=== PATIENT | female | born 1960 | race Caucasian/White ===

== ENCOUNTER 2022-10-27 09:56 | Outpatient (CLI) | payer OTHER, SELFPAY | END 2022-10-27 09:57 | disposition home or self-care (01) | LOC: WOUND 10:03 | PROVIDERS: PCP Family Medicine; Visit Provider Surgery | DX: I89.0 Lymphedema, not elsewhere classified (principal); L97.319 Non-pressure chronic ulcer of right ankle with unspecified severity; I50.20 Unspecified systolic (congestive) heart failure | CPT/HCPCS: 97597; 99205 ==

== ENCOUNTER 2022-11-03 10:53 | Outpatient (CLI) | payer OTHER, SELFPAY | END 2022-11-03 10:54 | disposition home or self-care (01) | LOC: WOUND 10:54 | PROVIDERS: PCP Family Medicine; Visit Provider Surgery | DX: I89.0 Lymphedema, not elsewhere classified (principal); L97.319 Non-pressure chronic ulcer of right ankle with unspecified severity; L97.819 Non-pressure chronic ulcer of other part of right lower leg with unspecified severity | CPT/HCPCS: 97597 ==

== ENCOUNTER 2022-11-10 09:57 | Outpatient (CLI) | payer OTHER, SELFPAY | END 2022-11-10 09:58 | disposition home or self-care (01) | LOC: WOUND 09:57 | PROVIDERS: PCP Family Medicine; Visit Provider Surgery | DX: I89.0 Lymphedema, not elsewhere classified (principal); I87.2 Venous insufficiency (chronic) (peripheral); L97.319 Non-pressure chronic ulcer of right ankle with unspecified severity | CPT/HCPCS: 97597; 99212 ==

== ENCOUNTER 2022-11-17 09:57 | Outpatient (CLI) | payer OTHER, SELFPAY | END 2022-11-17 09:58 | disposition home or self-care (01) | LOC: WOUND 09:57 | PROVIDERS: PCP Family Medicine; Visit Provider Surgery | DX: I89.0 Lymphedema, not elsewhere classified (principal); I87.2 Venous insufficiency (chronic) (peripheral); L97.318 Non-pressure chronic ulcer of right ankle with other specified severity | CPT/HCPCS: 97597 ==

== ENCOUNTER 2022-11-17 11:12 | Outpatient (CLI) | payer OTHER, SELFPAY ==
--- NOTE | 2022-11-17 11:15 | CRLHL7_ITS ---
For Patients: As a result of the Cures Act, medical imaging exams and procedure reports are released immediately into your electronic medical record. You may view this report before your referring provider. If you have questions, please contact your health care provider. Indication: Infection Technique: Right ankle 2 views Comparison: None Findings: Postop changes of ankle fusion noted with intact hardware. No periostitis or cortical destruction. No fracture. Soft tissue swelling. Impression: No evidence of osteomyelitis. Dictated by Siddhartha Osborn MD @ 11/17/2022 11:50:08 AM (Electronically Signed)
== END 2022-11-17 11:13 | disposition home or self-care (01) ==
LOC: RAD 11:12
PROVIDERS: PCP Family Medicine; Visit Provider Surgery
DX: L97.809 Non-pressure chronic ulcer of other part of unspecified lower leg with unspecified severity (principal); I87.2 Venous insufficiency (chronic) (peripheral)
CPT/HCPCS: 73600

== ENCOUNTER 2022-11-24 10:06 | Outpatient (CLI) | payer OTHER, SELFPAY | END 2022-11-24 10:07 | disposition home or self-care (01) | LOC: WOUND 10:06 | PROVIDERS: PCP Family Medicine; Visit Provider Surgery | DX: I89.0 Lymphedema, not elsewhere classified (principal); L97.312 Non-pressure chronic ulcer of right ankle with fat layer exposed; I87.2 Venous insufficiency (chronic) (peripheral) | CPT/HCPCS: 99213 ==

== ENCOUNTER 2022-11-26 14:48 | Outpatient (CLI) | payer OTHER, SELFPAY | END 2022-11-26 14:49 | disposition home or self-care (01) | PROVIDERS: PCP Family Medicine; Visit Provider Surgery | DX: I89.0 Lymphedema, not elsewhere classified (principal); L97.312 Non-pressure chronic ulcer of right ankle with fat layer exposed | CPT/HCPCS: 99212 ==

== ENCOUNTER 2022-11-29 15:26 | Outpatient (CLI) | payer OTHER, SELFPAY | END 2022-11-29 15:27 | disposition home or self-care (01) | LOC: WOUND 15:26 | PROVIDERS: PCP Family Medicine; Visit Provider Surgery | DX: I89.0 Lymphedema, not elsewhere classified (principal); I87.2 Venous insufficiency (chronic) (peripheral); L97.312 Non-pressure chronic ulcer of right ankle with fat layer exposed | CPT/HCPCS: 99212 ==

== ENCOUNTER 2022-12-01 10:28 | Outpatient (CLI) | payer OTHER, SELFPAY | END 2022-12-01 10:29 | disposition home or self-care (01) | LOC: WOUND 10:28 | PROVIDERS: PCP Family Medicine; Visit Provider Surgery | DX: I89.0 Lymphedema, not elsewhere classified (principal); I87.2 Venous insufficiency (chronic) (peripheral); L97.318 Non-pressure chronic ulcer of right ankle with other specified severity | CPT/HCPCS: 97597 ==

== ENCOUNTER 2022-12-08 09:56 | Outpatient (CLI) | payer OTHER, SELFPAY | END 2022-12-08 09:57 | disposition home or self-care (01) | LOC: WOUND 09:56 | PROVIDERS: PCP Family Medicine; Visit Provider Surgery | DX: I87.2 Venous insufficiency (chronic) (peripheral) (principal); L97.312 Non-pressure chronic ulcer of right ankle with fat layer exposed; I89.0 Lymphedema, not elsewhere classified | CPT/HCPCS: 97597 ==

== ENCOUNTER 2022-12-15 08:53 | Outpatient (CLI) | payer OTHER, SELFPAY | END 2022-12-15 08:54 | disposition home or self-care (01) | LOC: WOUND 08:54 | PROVIDERS: PCP Family Medicine; Visit Provider Surgery | DX: I87.2 Venous insufficiency (chronic) (peripheral) (principal); L97.318 Non-pressure chronic ulcer of right ankle with other specified severity; I89.0 Lymphedema, not elsewhere classified | CPT/HCPCS: 15271; Q4121 ==

== ENCOUNTER 2022-12-22 10:11 | Outpatient (CLI) | payer OTHER, SELFPAY | END 2022-12-22 10:12 | disposition home or self-care (01) | LOC: WOUND 10:11 | PROVIDERS: PCP Family Medicine; Visit Provider Surgery | DX: I87.2 Venous insufficiency (chronic) (peripheral) (principal); I89.0 Lymphedema, not elsewhere classified; L97.318 Non-pressure chronic ulcer of right ankle with other specified severity | CPT/HCPCS: 99213 ==

== ENCOUNTER 2022-12-29 10:20 | Outpatient (CLI) | payer OTHER, SELFPAY | END 2022-12-29 10:21 | disposition home or self-care (01) | LOC: WOUND 10:20 | PROVIDERS: PCP Family Medicine; Visit Provider Family Medicine | DX: I87.311 Chronic venous hypertension (idiopathic) with ulcer of right lower extremity (principal); L97.318 Non-pressure chronic ulcer of right ankle with other specified severity | CPT/HCPCS: 15271; Q4121 ==

== ENCOUNTER 2023-01-12 10:27 | Outpatient (CLI) | payer OTHER, SELFPAY | END 2023-01-12 10:28 | disposition home or self-care (01) | PROVIDERS: PCP Family Medicine; Visit Provider Surgery | DX: I89.0 Lymphedema, not elsewhere classified (principal); I87.2 Venous insufficiency (chronic) (peripheral); L97.818 Non-pressure chronic ulcer of other part of right lower leg with other specified severity; S81.801A Unspecified open wound, right lower leg, initial encounter | CPT/HCPCS: 99214 ==

== ENCOUNTER 2023-01-19 10:15 | Outpatient (CLI) | payer OTHER, SELFPAY ==
--- NOTE | 2023-01-19 15:00 | CRLHL7_ITS ---
For Patients: As a result of the Cures Act, medical imaging exams and procedure reports are released immediately into your electronic medical record. You may view this report before your referring provider. If you have questions, please contact your health care provider. INDICATION: bilateral edema, non-healing wounds. COMPARISON: None available TECHNIQUE: A duplex venous ultrasound exam was performed of both lower extremities using machado scale imaging, color Doppler and spectral Doppler analysis. Pre- and post compression images were obtained per site specific protocol. The size of the superficial veins were recorded, along with reflux times if applicable. FINDINGS: In the right lower extremity deep venous system, there is normal compressibility, color Doppler venous blood flow and augmentation within the common femoral vein, superficial femoral vein, popliteal vein, and posterior tibial veins. The greater and lesser saphenous veins of the right lower extremity are also patent and compressible with intact color Doppler venous blood flow. The greater saphenous vein measures 1.0 cm at the saphenofemoral junction where it is competent. The greater saphenous vein is competent throughout the thigh and calf. The lesser saphenous vein is competent throughout. In the left lower extremity deep venous system, there is normal compressibility, color Doppler venous blood flow and augmentation within the common femoral vein, superficial femoral vein, popliteal vein, and posterior tibial veins. The greater and lesser saphenous veins of the left lower extremity are also patent and compressible with intact color Doppler venous blood flow. The greater saphenous vein measures 1.6 cm at the saphenofemoral junction where it is competent. The greater saphenous vein is competent throughout the thigh and calf. The lesser saphenous vein is competent throughout. IMPRESSION: 1. No deep or superficial venous thrombosis. 2. No venous insufficiency in bilateral lower extremities. Dictated by Siddhartha Osborn MD @ 01/20/2023 8:21:22 AM (Electronically Signed)
== END 2023-01-19 10:16 | disposition home or self-care (01) ==
PROVIDERS: PCP Family Medicine; Visit Provider Surgery
DX: I89.0 Lymphedema, not elsewhere classified (principal); I87.2 Venous insufficiency (chronic) (peripheral); L97.312 Non-pressure chronic ulcer of right ankle with fat layer exposed
CPT/HCPCS: 93970; 97597

== ENCOUNTER 2023-01-26 10:26 | Outpatient (CLI) | payer OTHER, SELFPAY | END 2023-01-26 10:27 | disposition home or self-care (01) | LOC: WOUND 10:26 | PROVIDERS: PCP Family Medicine; Visit Provider Surgery | DX: I87.2 Venous insufficiency (chronic) (peripheral) (principal); I89.0 Lymphedema, not elsewhere classified; L97.312 Non-pressure chronic ulcer of right ankle with fat layer exposed | CPT/HCPCS: 15271; Q4121 ==

== ENCOUNTER 2023-02-02 10:26 | Outpatient (CLI) | payer OTHER, SELFPAY | END 2023-02-02 10:27 | disposition home or self-care (01) | LOC: WOUND 10:26 | PROVIDERS: PCP Family Medicine; Visit Provider Surgery | DX: I89.0 Lymphedema, not elsewhere classified (principal); L97.312 Non-pressure chronic ulcer of right ankle with fat layer exposed; E66.01 Morbid (severe) obesity due to excess calories; Z68.43 Body mass index [BMI] 50.0-59.9, adult | CPT/HCPCS: 87070; 87186; 97597; 99212 ==

== ENCOUNTER 2023-02-09 09:55 | Outpatient (CLI) | payer OTHER, SELFPAY | END 2023-02-09 09:56 | disposition home or self-care (01) | LOC: WOUND 09:55 | PROVIDERS: PCP Family Medicine; Visit Provider Surgery | DX: I87.2 Venous insufficiency (chronic) (peripheral) (principal); I89.0 Lymphedema, not elsewhere classified; L97.312 Non-pressure chronic ulcer of right ankle with fat layer exposed | CPT/HCPCS: 97597 ==

== ENCOUNTER 2023-02-16 11:04 | Outpatient (CLI) | payer OTHER, SELFPAY | END 2023-02-16 11:05 | disposition home or self-care (01) | LOC: WOUND 11:05 | PROVIDERS: PCP Family Medicine; Visit Provider Surgery | DX: I87.2 Venous insufficiency (chronic) (peripheral) (principal); I89.0 Lymphedema, not elsewhere classified; L97.312 Non-pressure chronic ulcer of right ankle with fat layer exposed | CPT/HCPCS: 11042 ==

== ENCOUNTER 2023-02-23 09:54 | Outpatient (CLI) | payer OTHER, SELFPAY | END 2023-02-23 09:55 | disposition home or self-care (01) | LOC: WOUND 09:54 | PROVIDERS: PCP Family Medicine; Visit Provider Physician Assistant | DX: I87.2 Venous insufficiency (chronic) (peripheral) (principal); I89.0 Lymphedema, not elsewhere classified; L97.312 Non-pressure chronic ulcer of right ankle with fat layer exposed | CPT/HCPCS: 15271; Q4121 ==

== ENCOUNTER 2023-03-02 09:53 | Outpatient (CLI) | payer OTHER, SELFPAY | END 2023-03-02 09:54 | disposition home or self-care (01) | LOC: WOUND 09:53 | PROVIDERS: PCP Family Medicine; Visit Provider Family Medicine | DX: I87.311 Chronic venous hypertension (idiopathic) with ulcer of right lower extremity (principal); L97.312 Non-pressure chronic ulcer of right ankle with fat layer exposed; I89.0 Lymphedema, not elsewhere classified; I87.2 Venous insufficiency (chronic) (peripheral) | CPT/HCPCS: 15271; Q4121 ==

== ENCOUNTER 2023-03-09 10:31 | Outpatient (CLI) | payer OTHER, SELFPAY | END 2023-03-09 10:32 | disposition home or self-care (01) | LOC: WOUND 10:31 | PROVIDERS: PCP Family Medicine; Visit Provider Physician Assistant Surgical | DX: I87.2 Venous insufficiency (chronic) (peripheral) (principal); I89.0 Lymphedema, not elsewhere classified; L97.312 Non-pressure chronic ulcer of right ankle with fat layer exposed | CPT/HCPCS: 11042 ==

== ENCOUNTER 2023-03-09 12:30 | Outpatient (RCR) | payer OTHER, SELFPAY | END 2023-07-07 23:59 | disposition home or self-care (01) | PROVIDERS: PCP Family Medicine; Visit Provider Surgery | DX: I89.0 Lymphedema, not elsewhere classified (principal); Z51.89 Encounter for other specified aftercare | CPT/HCPCS: 97140; 97165; 97535 ==

== ENCOUNTER 2023-03-16 10:31 | Outpatient (CLI) | payer MEDICARE, SELFPAY | END 2023-03-16 10:32 | disposition home or self-care (01) | PROVIDERS: PCP Family Medicine; Visit Provider Family Medicine | DX: T84.7XXA Infection and inflammatory reaction due to other internal orthopedic prosthetic devices, implants and grafts, initial encounter (principal); L97.312 Non-pressure chronic ulcer of right ankle with fat layer exposed; I89.0 Lymphedema, not elsewhere classified | CPT/HCPCS: 11042 ==

== ENCOUNTER 2023-03-23 08:47 | Outpatient (CLI) | payer OTHER, SELFPAY ==
--- NOTE | 2023-03-23 09:00 | CRLHL7_ITS ---
For Patients: As a result of the Cures Act, medical imaging exams and procedure reports are released immediately into your electronic medical record. You may view this report before your referring provider. If you have questions, please contact your health care provider. HISTORY: Fusion. Wound. Retained hardware. TECHNIQUE: Noncontrast CT of the right ankle. COMPARISON: Radiographs from 11/17/2022. FINDINGS: Patient is status post prior fusion of the tibiotalar joint space and syndesmosis. There is mature broad fusion across the tibiotalar joint space. There is also fusion between the distal tibia and fibula and between the fibula and lateral talus. The placed hardware appears intact. No evidence of hardware loosening. 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 Degenerative changes of navicular cuneiform articulations. Soft tissue swelling. No definite fluid collection. No acute bone destruction specific for osteomyelitis. IMPRESSION: 1. Mature fusion across the tibiotalar joint space, between the distal tibia and fibula and between the distal fibula and lateral talus. 2. 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 3. 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 4. Soft tissue swelling. 5. No acute bone destruction specific for osteomyelitis. Please note that all CT scans at this facility use dose modulation, iterative reconstruction, and/or weight-based dosing when appropriate to reduce radiation dose to as low as reasonably achievable. Dictated by Jean Paul Sarabia MD @ 03/24/2023 1:11:07 PM (Electronically Signed)
== END 2023-03-23 08:48 | disposition home or self-care (01) ==
PROVIDERS: PCP Family Medicine; Visit Provider Physician Assistant Surgical
DX: I87.2 Venous insufficiency (chronic) (peripheral) (principal); L97.312 Non-pressure chronic ulcer of right ankle with fat layer exposed; I89.0 Lymphedema, not elsewhere classified; Z96.7 Presence of other bone and tendon implants
CPT/HCPCS: 73700; 97597

== ENCOUNTER 2023-03-24 10:53 | Outpatient (CLI) | payer OTHER, SELFPAY | END 2023-03-24 10:54 | disposition home or self-care (01) | PROVIDERS: PCP Family Medicine; Visit Provider Orthopaedic Surgery | DX: B99.9 Unspecified infectious disease (principal) | CPT/HCPCS: 86140 ==

== ENCOUNTER 2023-03-30 10:32 | Outpatient (CLI) | payer OTHER, SELFPAY | END 2023-03-30 10:33 | disposition home or self-care (01) | LOC: WOUND 10:32 | PROVIDERS: PCP Family Medicine; Visit Provider Physician Assistant | DX: I87.2 Venous insufficiency (chronic) (peripheral) (principal); I89.0 Lymphedema, not elsewhere classified; L97.312 Non-pressure chronic ulcer of right ankle with fat layer exposed | CPT/HCPCS: 97597 ==

== ENCOUNTER 2023-04-13 10:18 | Outpatient (CLI) | payer OTHER, SELFPAY | END 2023-04-13 10:19 | disposition home or self-care (01) | LOC: WOUND 10:18 | PROVIDERS: PCP Family Medicine; Visit Provider Family Medicine | DX: I87.2 Venous insufficiency (chronic) (peripheral) (principal); L97.312 Non-pressure chronic ulcer of right ankle with fat layer exposed; T84.7XXA Infection and inflammatory reaction due to other internal orthopedic prosthetic devices, implants and grafts, initial encounter; I89.0 Lymphedema, not elsewhere classified | CPT/HCPCS: 11042; G0463 ==

== ENCOUNTER 2023-05-18 10:34 | Outpatient (CLI) | payer OTHER, SELFPAY | END 2023-05-18 10:35 | disposition home or self-care (01) | LOC: WOUND 10:34 | PROVIDERS: PCP Family Medicine; Visit Provider Family Medicine | DX: I87.2 Venous insufficiency (chronic) (peripheral) (principal); I89.0 Lymphedema, not elsewhere classified; L97.312 Non-pressure chronic ulcer of right ankle with fat layer exposed; T84.7XXA Infection and inflammatory reaction due to other internal orthopedic prosthetic devices, implants and grafts, initial encounter | CPT/HCPCS: 97597 ==

== ENCOUNTER 2023-05-25 10:28 | Outpatient (CLI) | payer OTHER, SELFPAY | END 2023-05-25 10:29 | disposition home or self-care (01) | LOC: WOUND 10:28 | PROVIDERS: PCP Family Medicine; Visit Provider Family Medicine | DX: I87.311 Chronic venous hypertension (idiopathic) with ulcer of right lower extremity (principal); I87.2 Venous insufficiency (chronic) (peripheral); L97.312 Non-pressure chronic ulcer of right ankle with fat layer exposed | CPT/HCPCS: 11042 ==

== ENCOUNTER 2023-06-01 10:33 | Outpatient (CLI) | payer OTHER, SELFPAY | END 2023-06-01 10:34 | disposition home or self-care (01) | LOC: WOUND 10:33 | PROVIDERS: PCP Family Medicine; Visit Provider Surgery | DX: I87.311 Chronic venous hypertension (idiopathic) with ulcer of right lower extremity (principal); I87.2 Venous insufficiency (chronic) (peripheral); L97.312 Non-pressure chronic ulcer of right ankle with fat layer exposed | CPT/HCPCS: 97597 ==

== ENCOUNTER 2023-06-08 10:34 | Outpatient (CLI) | payer OTHER, SELFPAY | END 2023-06-08 10:35 | disposition home or self-care (01) | LOC: WOUND 10:35 | PROVIDERS: PCP Family Medicine; Visit Provider Surgery | DX: I87.311 Chronic venous hypertension (idiopathic) with ulcer of right lower extremity (principal); I87.2 Venous insufficiency (chronic) (peripheral); L97.312 Non-pressure chronic ulcer of right ankle with fat layer exposed | CPT/HCPCS: 97597 ==

== ENCOUNTER 2023-06-15 11:21 | Outpatient (CLI) | payer OTHER, SELFPAY | END 2023-06-15 11:22 | disposition home or self-care (01) | LOC: WOUND 11:21 | PROVIDERS: PCP Family Medicine; Visit Provider Surgery | DX: I87.311 Chronic venous hypertension (idiopathic) with ulcer of right lower extremity (principal); I87.2 Venous insufficiency (chronic) (peripheral); L97.312 Non-pressure chronic ulcer of right ankle with fat layer exposed | CPT/HCPCS: 15271; Q4151 ==

== ENCOUNTER 2023-06-22 11:16 | Outpatient (CLI) | payer OTHER, SELFPAY | END 2023-06-22 11:17 | disposition home or self-care (01) | LOC: WOUND 11:16 | PROVIDERS: PCP Family Medicine; Visit Provider Surgery | DX: I87.311 Chronic venous hypertension (idiopathic) with ulcer of right lower extremity (principal); I87.2 Venous insufficiency (chronic) (peripheral); L97.312 Non-pressure chronic ulcer of right ankle with fat layer exposed; I89.0 Lymphedema, not elsewhere classified | CPT/HCPCS: 15271; Q4151 ==

== ENCOUNTER 2023-06-29 11:14 | Outpatient (CLI) | payer OTHER, SELFPAY | END 2023-06-29 11:15 | disposition home or self-care (01) | PROVIDERS: PCP Family Medicine; Visit Provider Surgery | DX: I87.311 Chronic venous hypertension (idiopathic) with ulcer of right lower extremity (principal); I87.2 Venous insufficiency (chronic) (peripheral); L97.312 Non-pressure chronic ulcer of right ankle with fat layer exposed; I89.0 Lymphedema, not elsewhere classified | CPT/HCPCS: 15271; Q4151 ==

== ENCOUNTER 2023-07-06 11:07 | Outpatient (CLI) | payer OTHER, SELFPAY | END 2023-07-06 11:08 | disposition home or self-care (01) | LOC: WOUND 11:07 | PROVIDERS: PCP Family Medicine; Visit Provider Family Medicine | DX: I87.311 Chronic venous hypertension (idiopathic) with ulcer of right lower extremity (principal); I87.2 Venous insufficiency (chronic) (peripheral); L97.312 Non-pressure chronic ulcer of right ankle with fat layer exposed | CPT/HCPCS: 15271; Q4151 ==

== ENCOUNTER 2023-07-13 11:09 | Outpatient (CLI) | payer OTHER, SELFPAY | END 2023-07-13 11:10 | disposition home or self-care (01) | PROVIDERS: PCP Family Medicine; Visit Provider Surgery | DX: I87.311 Chronic venous hypertension (idiopathic) with ulcer of right lower extremity (principal); I87.2 Venous insufficiency (chronic) (peripheral); I89.0 Lymphedema, not elsewhere classified; L97.312 Non-pressure chronic ulcer of right ankle with fat layer exposed | CPT/HCPCS: 15271; Q4151 ==

== ENCOUNTER 2023-07-20 11:13 | Outpatient (CLI) | payer OTHER, SELFPAY | END 2023-07-20 11:14 | disposition home or self-care (01) | LOC: WOUND 11:13 | PROVIDERS: PCP Family Medicine; Visit Provider Surgery | DX: I87.311 Chronic venous hypertension (idiopathic) with ulcer of right lower extremity (principal); I87.2 Venous insufficiency (chronic) (peripheral); L97.312 Non-pressure chronic ulcer of right ankle with fat layer exposed | CPT/HCPCS: 97597 ==

== ENCOUNTER 2023-08-03 11:22 | Outpatient (CLI) | payer OTHER, SELFPAY | END 2023-08-03 11:23 | disposition home or self-care (01) | LOC: WOUND 11:22 | PROVIDERS: PCP Family Medicine; Visit Provider Surgery | DX: I87.311 Chronic venous hypertension (idiopathic) with ulcer of right lower extremity (principal); L97.312 Non-pressure chronic ulcer of right ankle with fat layer exposed; I89.0 Lymphedema, not elsewhere classified | CPT/HCPCS: 15271; Q4151 ==

== ENCOUNTER 2023-08-17 11:14 | Outpatient (CLI) | payer OTHER, SELFPAY | END 2023-08-17 11:15 | disposition home or self-care (01) | PROVIDERS: PCP Family Medicine; Visit Provider Surgery | DX: I87.311 Chronic venous hypertension (idiopathic) with ulcer of right lower extremity (principal); I87.2 Venous insufficiency (chronic) (peripheral); L97.318 Non-pressure chronic ulcer of right ankle with other specified severity | CPT/HCPCS: G0463 ==

== ENCOUNTER 2023-08-31 11:10 | Outpatient (CLI) | payer OTHER, SELFPAY | END 2023-08-31 11:11 | disposition home or self-care (01) | LOC: WOUND 11:16 | PROVIDERS: PCP Family Medicine; Visit Provider Surgery | DX: I87.311 Chronic venous hypertension (idiopathic) with ulcer of right lower extremity (principal); I87.2 Venous insufficiency (chronic) (peripheral); L97.312 Non-pressure chronic ulcer of right ankle with fat layer exposed; L30.4 Erythema intertrigo; B95.2 Enterococcus as the cause of diseases classified elsewhere; I89.0 Lymphedema, not elsewhere classified | CPT/HCPCS: 87070; 87186; G0463 ==

== ENCOUNTER 2023-09-07 11:13 | Outpatient (CLI) | payer OTHER, SELFPAY | END 2023-09-07 11:14 | disposition home or self-care (01) | LOC: WOUND 11:13 | PROVIDERS: PCP Family Medicine; Visit Provider Surgery | DX: I87.311 Chronic venous hypertension (idiopathic) with ulcer of right lower extremity (principal); I87.2 Venous insufficiency (chronic) (peripheral); L97.312 Non-pressure chronic ulcer of right ankle with fat layer exposed | CPT/HCPCS: 97597; G0463 ==

== ENCOUNTER 2023-09-14 11:25 | Outpatient (CLI) | payer OTHER, SELFPAY ==
[2023-09-14 12:26] LABS: Basophils Percent Auto 0.4 % (0.0-3.0); Eosinophils Percent Auto 2.1 % (0.0-7.0); Hematocrit 35.8 % (33.0-51.0); Hemoglobin* 11.9 gm/dL (12.0-16.0); Immature Granulocytes Pct Auto 0.2 %; Lymphocytes Percent Auto 12.2 % (20-44); Mean Corpuscular HGB Conc 33 gm/dL (32-36); Mean Corpuscular Hemoglobin 31 pg (26-34); Mean Corpuscular Volume 93 fL (80-100); Monocytes Percent Auto 15.2 % (0.0-11.0); Neutrophils Percent Auto 69.9 % (42.0-72.0); Platelet Count* 263 K/uL (140-440); RDW Coefficient of Variation % 13.7 % (11.5-15.5); Red Blood Count 3.86 m/uL (4.00-5.20); White Blood Count* 12.33 K/uL (4.50-11.00)
[2023-09-14 12:42] LABS: C Reactive Protein* 5.2 mg/dL (0.5-1.0)
[2023-09-14 12:50] LABS: Slide Review Reflex No
[2023-09-14 13:35] LABS: Erythrocyte SedimentationRate* 34 mm/hr (2-20)
== END 2023-09-14 11:26 | disposition home or self-care (01) ==
LOC: WOUND 11:25
PROVIDERS: PCP Family Medicine; Visit Provider Surgery
DX: I87.311 Chronic venous hypertension (idiopathic) with ulcer of right lower extremity (principal); I87.2 Venous insufficiency (chronic) (peripheral); I89.0 Lymphedema, not elsewhere classified; L97.312 Non-pressure chronic ulcer of right ankle with fat layer exposed; L30.4 Erythema intertrigo
CPT/HCPCS: 36415; 73610; 85025; 85651; 86140; G0463

== ENCOUNTER 2023-09-18 13:37 | Emergency (ER) | payer OTHER, SELFPAY ==
[2023-09-18] VITALS (12 sets, daily range): BP systolic 120–151; BP diastolic 56–100; PULSE 69–77; RESP 24; TEMP 36.3; O2SAT 88–97; BMI 58.2
--- NOTE | 2023-09-18 14:10 | CRLHL7_ITS ---
For Patients: As a result of the Century Cures Act, medical imaging exams and procedure reports are released immediately into your electronic medical record. You may view this report before your referring provider. If you have questions, please contact your health care provider. Indication: : Shortness of breath TECHNIQUE: Single-view chest. FINDINGS: The lungs are clear. The heart, mediastinum and pulmonary vessels are of normal size. There is no evidence of pleural disease. Right pericardial opacity could represent a pericardial cyst or fat pad. IMPRESSION: 1. No acute pulmonary findings. Right pericardial opacity related to a pericardial cyst or fat pad. Dictated by Keeley Durand MD @ 09/18/2023 3:52:25 PM (Electronically Signed)
--- NOTE | 2023-09-18 14:22 | ED.GENADULT ---
HPI - General Adult General Chief complaint: Shortness of Breath/Dyspnea Stated complaint: shortness of breath Time Seen by Provider: 09/18/23 13:47 Source: patient Mode of arrival: EMS Limitations: no limitations History of Present Illness HPI narrative: 63-year-old female coming in today concerned about bilateral feet pain. Patient does have a slowly healing wound of the right ankle but she has been getting [facility], states that Tuesday of this week the so 5 days ago caught on she developed bilateral knee pain. She states that she is in so much pain that she cannot walk. She does live by herself and so what she has been doing this having her son come by twice a day to feed her and help her to the bathroom. Because she only goes to the bathroom 2 times per day she stopped taking her torsemide. She thinks that this is contributing to the fact that her legs are becoming more and more painful, most of the pain again located in the feet. She does complain of feeling short of breath but she states she has been short of breath for about a year in her shortness of breath has not worsened, however she has done almost 0 physical activity for the last 5 days. No fevers. She does complain of having a decreased appetite. No nausea or vomiting. No diarrhea. No urinary symptoms such as increased frequency, urgency or dysuria. Patient is currently on antibiotics. She had an ankle x-ray on September 13 which did not show any evidence of osteomyelitis. Patient is concerned about going home and she is not able to function independently, she is interested in going into a rehab center. Related Data Home Medications ?Medication ?Instructions ?Recorded ?Confirmed gabapentin 300 mg capsule 300 mg PO 3XD 03/23/23 09/18/23 lisinopril 20 1 tab PO DAILY 03/23/23 09/18/23 mg-hydrochlorothiazide 12.5 mg tablet ondansetron 4 mg disintegrating mg PO 03/23/23 03/23/23 tablet propranolol 60 mg tablet 60 mg PO BID 03/23/23 03/23/23 meloxicam 7.5 mg tablet 7.5 mg PO BID 09/18/23 09/18/23 torsemide 20 mg tablet mg PO 09/18/23 tramadol 50 mg tablet 50 mg PO BID PRN 09/18/23 09/18/23 trazodone 50 mg tablet PO 09/18/23 Previous Rx's ?Medication ?Instructions ?Recorded hydrocodone 5 mg-acetaminophen 325 1 tab PO Q6H PRN pain #7 tabs 02/16/23 mg tablet mupirocin 2 % topical ointment 1 applic topical .bid #50 grams 02/16/23 hydrocodone 5 mg-acetaminophen 325 1 tab PO Q6H PRN pain #6 tabs 02/23/23 mg tablet nystatin 100,000 unit/gram topical 1 applic topical QDAY #60 grams 06/29/23 powder amoxicillin 500 mg-potassium 1 tab PO TID 7 days #21 tabs 09/14/23 clavulanate 125 mg tablet (Augmentin) hydrocodone 5 mg-acetaminophen 325 1 tab PO Q8H PRN pain #10 tabs 09/14/23 mg tablet Allergies Allergy/AdvReac Type Severity Reaction Status Date / Time adhesive Allergy Unknown redness on Unverified 04/12/23 09:40 skin Aquacel Ag Foam - Silver Allergy Unknown Uncoded 04/12/23 09:40 foam bandage Duoderm adhesives Allergy Unknown blisters Uncoded 04/12/23 09:40 Review of Systems Status of ROS: Reports: 10 or more systems reviewed and unremarkable except as noted in History and below [facility] Medical History Back problem ?M53.9 - Dorsopathy, unspecified (ICD-10) Sleep apnea ?G47.30 - Sleep apnea, unspecified (ICD-10) Hypertension ?I10 - Essential (primary) hypertension (ICD-10) Surgical History Previous back surgery ?Z98.890 - Other specified postprocedural states (ICD-10) History of total left knee replacement ?Z96.652 - Presence of left artificial knee joint (ICD-10) History of ankle surgery ?Z98.890 - Other specified postprocedural states (ICD-10) Social History Smoking Status: Former smoker What tobacco products do you use: cigarettes Smoking quit date/years: >15 years ago Do you use any of these nicotine containing products: None Second hand tobacco smoke exposure: No How often do you have a drink containing alcohol: 2-4 times a month How many standard drinks containing alcohol do you have on a typical day: 3 or 4 How often do you have six or more drinks on one occasion: Less than monthly AUDIT-C Alcohol total score: 4 Non-prescribed substance use: denies use service: No Exam Narrative: Exam Narrative: Morbidly obese patient in no acute distress. Alert and oriented x3. Answers questions appropriately. Mood and affect are appropriate. Thoughts are goal oriented and rational. No tangential or magical thinking noted. Patient speaks in full sentences without needing to catch her breath. HEENT: Normocephalic atraumatic. Pupils are equally round reactive to light. Extraocular muscles are intact. Conjunctivae are moist without any icterus noted. Moist mucous membranes. Neck is soft. Cardiovascular: Heart is regular rate and rhythm, heart sounds are distant. Lungs: Clear to auscultation bilaterally no wheezes rhonchi or rales are appreciated. Abdomen: Soft and nontender nondistended with normal bowel sounds. Extremities: Bilateral lower extremities show 2+ pitting edema bilaterally. She does have a healing ulcer over the long right lateral ankle, she has an outline with marker, erythema does not extend beyond the outline. She has blistering of the skin on the dorsal surface of the foot on the left. Plantar surface of both feet are unremarkable. Skin: Well perfused. Const: Vital Signs, click to edit/add: Vital Signs - 24 hr 09/18/23 13:48 09/18/23 13:57 09/18/23 14:01 Temperature 97.4 F L Pulse Rate 70 70 Pulse Rate [Left P ulse Oximeter] 77 Respiratory Rate 24 Blood Pressure Blood Pressure [Le ft Upper Arm] 139/57 L Pulse Oximetry 95 93 96 Oxygen Delivery Mi thod Room Air 09/18/23 14:02 09/18/23 14:15 09/18/23 14:30 Temperature Pulse Rate 69 72 Pulse Rate [Left P ulse Oximeter] Respiratory Rate Blood Pressure 120/100 H Blood Pressure [Le ft Upper Arm] Pulse Oximetry 88 88 Oxygen Delivery Me thod 09/18/23 14:31 09/18/23 14:38 09/18/23 14:45 Temperature Pulse Rate 74 71 Pulse Rate [Left P ulse Oximeter] Respiratory Rate Blood Pressure 133/56 L Blood Pressure [Le ft Upper Arm] Pulse Oximetry 91 95 96 Oxygen Delivery Me thod 09/18/23 15:00 09/18/23 15:02 09/18/23 15:15 Temperature Pulse Rate 71 74 71 Pulse Rate [Left P ulse Oximeter] Respiratory Rate Blood Pressure 151/72 H Blood Pressure [Le ft Upper Arm] Pulse Oximetry 96 97 96 Oxygen Delivery Me thod Course Course ED Course: Patient's workup was unremarkable. EKG, read the, some sinus rhythm with a pulse of 72. CBC shows a hemoglobin of 11.2, normal white cell count. Electrolytes are normal. LFTs are unremarkable. Normal troponin. He was BNP is 596. Chest x-ray, read by me, does not show any acute infiltrates. I discussed pain management with the patient she is taking hydrocodone and gabapentin as prescribed. No feet certainly could be more sore secondary to increased swelling secondary to her stopping her torsemide. I do not see any evidence of just heart failure. We discussed admission, unfortunately without admitting diagnosis patient would be self pain and she understands this. Because of this she does agree to be discharged back home. I will have a social worker assistant call her tomorrow during business hours to discuss supports. Her son will continue to support her. We discussed things making life easier at home such as a bedside commode. Vital Signs Vital signs: Initial Vital Signs Temperature 97.4 F L 09/18/23 13:48 Temperature Source Temporal Artery Scan 09/18/23 13:48 Pulse Rate 77 09/18/23 13:48 Pulse Rhythm Regular 09/18/23 13:48 Pulse Strength 3+ Normal 09/18/23 13:48 Respiratory Rate 24 09/18/23 13:48 Blood Pressure 139/57 L 09/18/23 13:48 Blood Pressure Mean 84 09/18/23 13:48 Blood Pressure Position Sitting 09/18/23 13:48 Pulse Oximetry 95 09/18/23 13:48 Oxygen Delivery Method Room Air 09/18/23 13:48 Vital Signs Temperature 97.4 F L 09/18/23 13:48 Pulse Rate 77 09/18/23 13:48 Respiratory Rate 24 09/18/23 13:48 Blood Pressure 139/57 L 09/18/23 13:48 Pulse Oximetry 95 09/18/23 13:48 Oxygen Delivery Method Room Air 09/18/23 13:48 Temperature 97.4 F L 09/18/23 13:48 Pulse Rate 71 09/18/23 15:15 Respiratory Rate 24 09/18/23 13:48 Blood Pressure 151/72 H 09/18/23 15:02 Pulse Oximetry 96 09/18/23 15:15 Oxygen Delivery Method Room Air 09/18/23 13:48 Medications Administered Medications: Discontinued Medications Generic Name Dose Route Start Last Admin Trade Name Freq PRN Reason Stop Dose Admin Furosemide 20 mg 09/18/23 14:10 09/18/23 14:42 Furosemide 10 Mg/Ml Inj IVP 09/18/23 14:11 20 mg ONCE ONE Administration Medical Decision Making MDM Narrative Medical decision making narrative: 63-year-old female bilateral foot pain and difficulty getting around at home. Plan per above. Lab Data Lab results reviewed: Yes I reviewed the patient's lab results Labs: Lab Results 09/18/23 Range/Units 14:25 WBC 10.40 (4.50-11.00) K/uL RBC 3.66 L (4.00-5.20) m/uL Hgb 11.2 L (12.0-16.0) gm/dL Hct 34.7 (33.0-51.0) % MCV 95 (80-100) fL MCH 31 (26-34) pg MCHC 32 (32-36) gm/dL RDW Coeff of Neptali 13.8 (11.5-15.5) % Plt Count 283 (140-440) K/uL Neut % (Auto) 72.3 H (42.0-72.0) % Lymph % (Auto) 11.2 L (20-44) % [place] % (Auto) 14.6 H (0.0-11.0) % Eos % (Auto) 0.6 (0.0-7.0) % Baso % (Auto) 0.4 (0.0-3.0) % Neut # (Auto) 7.50 H (1.7-7.0) K/uL Lymph # (Auto) 1.20 (0.90-2.90) K/uL [place] # (Auto) 1.50 H (0.00-0.90) K/UL Eos # (Auto) 0.06 (0.00-0.50) K/uL Baso # (Auto) 0.04 (0.00-0.30) K/uL Abs Immat Gran (auto) 0.09 (0.00-0.30) K/uL Imm/Tot Granulo (auto) 0.9 % Sodium 135 (135-149) mmol/L Potassium 4.4 (3.6-5.1) mmol/L Chloride 98 (96-114) mmol/L Carbon Dioxide 27 (20-32) mmol/L Anion Gap 10 (7-15) mEq/L BUN 22 (7-30) mg/dL Creatinine 0.9 (0.5-1.5) mg/dL Estimated Creat Clear 52.49 Estimated GFR 72 ml/min Glucose 115 (60-115) mg/dL Lactate 1.7 (0.5-1.9) mmol/L Calcium 9.2 (8.4-10.6) mg/dL Total Bilirubin 0.6 (0.1-1.5) mg/dL Direct Bilirubin 0.5 (0.0-0.5) mg/dL AST 31 (12-35) U/L ALT 37 H (4-35) U/L Alkaline Phosphatase 109 (40-150) U/L Troponin I < 0.01 L (0.01-0.04) ng/mL NT-Pro-B Natriuret Pep 596 pg/mL Total Protein 7.3 (6.0-8.3) g/dL Albumin 4.2 (3.3-5.0) g/dL Imaging Data Chest x-ray: Attestation: I have reviewed the pertinent imaging results. Radiologist's impression: Shortness of breath TECHNIQUE: Single-view chest. FINDINGS: The lungs are clear. The heart, mediastinum and pulmonary vessels are of normal size. There is no evidence of pleural disease. Right pericardial opacity could represent a pericardial cyst or fat pad. IMPRESSION: 1. No acute pulmonary findings. Right pericardial opacity related to a pericardial cyst or fat pad. ECG Data Attestation: I personally reviewed and interpreted this ECG as follows: Discharge Plan Discharge Clinical Impression: Arthralgia of both feet Patient Disposition: Home, Self-Care Condition: Unchanged Additional Instructions: We will have her social work team call you this week to discuss other potential supports. In the meantime recommend a bedside commode. Recommend elevating your legs as much as possible to decrease the swelling which can decrease discomfort. Recommend you follow-up with your primary care provider this week to discuss pain control. Prescriptions: No Action gabapentin 300 mg capsule 300 mg PO 3XD propranolol 60 mg tablet 60 mg PO BID lisinopril-hydrochlorothiazide 20-12.5 mg tablet 1 tab PO DAILY ondansetron 4 mg tablet,disintegrating PO mupirocin 2 % ointment 1 applic topical .bid Qty: 50 0RF hydrocodone-acetaminophen 5-325 mg tablet 1 tab PO Q6H PRN (Reason: pain) Qty: 7 0RF torsemide 20 mg tablet PO trazodone 50 mg tablet PO tramadol 50 mg tablet 50 mg PO BID PRN meloxicam 7.5 mg tablet 7.5 mg PO BID hydrocodone-acetaminophen 5-325 mg tablet 1 tab PO Q6H PRN (Reason: pain) Qty: 6 0RF nystatin 100,000 unit/gram powder 1 applic topical QDAY Qty: 60 0RF amoxicillin-pot clavulanate [Augmentin] 500-125 mg tablet 1 tab PO TID 7 Days Qty: 21 0RF hydrocodone-acetaminophen 5-325 mg tablet 1 tab PO Q8H PRN (Reason: pain) Qty: 10 0RF Follow Up/Referrals: Bala Lugo MD [Primary Care Provider] - Stand Alone Forms: [employer] Info Instructions
[2023-09-18] MEDS: FUROSEMIDE 10 MG/ML inj 20 MG IVP (14:42)
[2023-09-18 14:47] LABS: Lactate* 1.7 mmol/L (0.5-1.9)
[2023-09-18 15:04] LABS: Basophils Absolute Auto 0.04 K/uL (0.00-0.30); Basophils Percent Auto 0.4 % (0.0-3.0); Eosinophils Absolute Auto 0.06 K/uL (0.00-0.50); Eosinophils Percent Auto 0.6 % (0.0-7.0); Hematocrit 34.7 % (33.0-51.0); Hemoglobin* 11.2 gm/dL (12.0-16.0); Immature Granulocytes Abs Auto 0.09 K/uL (0.00-0.30); Immature Granulocytes Pct Auto 0.9 %; Lymphocytes Percent Auto 11.2 % (20-44); Mean Corpuscular HGB Conc 32 gm/dL (32-36); Mean Corpuscular Hemoglobin 31 pg (26-34); Mean Corpuscular Volume 95 fL (80-100); Monocytes Percent Auto 14.6 % (0.0-11.0); Neutrophils Percent Auto 72.3 % (42.0-72.0); Platelet Count* 283 K/uL (140-440); RDW Coefficient of Variation % 13.8 % (11.5-15.5); Red Blood Count 3.66 m/uL (4.00-5.20)
[2023-09-18 15:22] LABS: Slide Review Reflex No
[2023-09-18 15:29] LABS: Albumin* 4.2 g/dL (3.3-5.0)
[2023-09-18 15:30] LABS: Chloride* 98 mmol/L (96-114); Potassium* 4.4 mmol/L (3.6-5.1); Sodium* 135 mmol/L (135-149)
[2023-09-18 15:32] LABS: Alkaline Phosphatase* 109 U/L (40-150); Aspartate Amino Transferase* 31 U/L (12-35); Bilirubin Direct* 0.5 mg/dL (0.0-0.5); Bilirubin Total* 0.6 mg/dL (0.1-1.5); Total Protein* 7.3 g/dL (6.0-8.3)
[2023-09-18 15:33] LABS: Alanine Aminotransferase* 37 U/L (4-35); Creatinine* 0.9 mg/dL (0.5-1.5); Est. Creatinine Clearance* 52.49; Estimated Glomerular Filt Rate 72 ml/min
[2023-09-18 15:34] LABS: Anion Gap 10 mEq/L (7-15); Blood Urea Nitrogen* 22 mg/dL (7-30); Calcium* 9.2 mg/dL (8.4-10.6); Carbon Dioxide* 27 mmol/L (20-32); Glucose* 115 mg/dL (60-115)
[2023-09-18 15:50] LABS: NT Pro B Type NatriureticPept* 596 pg/mL; Troponin I* < 0.01 ng/mL (0.01-0.04)
== END 2023-09-18 17:20 | disposition home or self-care (01) ==
PROVIDERS: Emergency Provider Family Medicine; PCP Family Medicine
DX: M25.572 Pain in left ankle and joints of left foot (principal); M25.571 Pain in right ankle and joints of right foot
CPT/HCPCS: 36415; 71045; 80048; 80076; 83605; 83880; 84484; 85025; 86140; 93005; 94761; 99284; J1940